=== PATIENT | male | born 1955 | race Caucasian/White ===

== ENCOUNTER 2023-12-28 16:49 | Inpatient (IN) | payer MEDICARE ==
[~2023-12-28 16:49] MED LIST: Iopamidol-370 76% 500 ML MDV (1 ML CHARGE) ONE
[2023-12-28 18:33] LABS: #Basophils 0.1 thou/uL (0.0-0.2); #Eosinphils 0.4 thou/uL (0.0-0.7); #Monocytes 1.3 thou/uL (0.11-0.59); #Neutrophils 10.8 thou/uL (1.40-6.50); %Basophils 0.4 % (0.0-1.0); %Eosinophils 2.7 % (0.0-10.0); %Lymphocytes 10.9 % (21.0-51.0); %Monocytes 8.8 % (0.0-10.0); %Neutrophils 76.1 % (42.0-75.0); Hematocrit 40.3 % (42.0-52.0); Mean Corpuscular HGB CONC 32.3 g/dL (32.0-36.0); Mean Corpuscular Hemoglobin 29.1 pg (27.0-31.0); Mean Corpuscular Volume 90.4 fl (78.0-98.0); Mean Platelet Volume 8.4 fL (7.4-10.4); Platelet Count 448 10x3/uL (130-400); RBC Distribution Width 14.7 % (11.5-14.5); Red Blood Cell (RBC) Count 4.46 mill/uL (4.70-6.10); White Blood Cell (WBC) Count 14.3 10x3/uL (4.8-10.8)
[2023-12-28 19:01] LABS: ALT (SGPT) 24 U/L (8-55); AST (SGOT) 35 U/L (5-34); Albumin 2.9 g/dL (3.4-4.8); Alkaline Phosphatase 43 U/L (40-110); Anion Gap 12 mmol/L (10-20); BUN (Urea Nitrogen) 13 mg/dL (8.4-25.7); Bilirubin, Total 0.3 mg/dL (0.2-1.2); Calc. Creatinine Clearance 0 mL/min (70-130); Calcium 8.2 mg/dL (7.8-10.44); Carbon Dioxide 16 mmol/L (23-31); Chloride 110 mmol/L (98-107); Estimated GFR 102; Globulin 3.2 g/dL (2.4-3.5); Glucose 84 mg/dL (80-115); Potassium 4.5 mmol/L (3.5-5.1); Protein, Total 6.1 g/dL (5.8-8.1); Sodium 133 mmol/L (136-145)
[2023-12-28 19:04] LABS: Troponin I 0.043 ng/mL (< 0.028)
[2023-12-28] MEDS ORDERED: cefTRIAXone (ROCEPHIN) 1 GM VIAL ONE (19:58)
[2023-12-28] MEDS ORDERED: Sodium Chloride 0.9% 100 ML ONE (19:58)
[2023-12-28] MEDS ORDERED: Azithromycin 500 MG VIAL ONE (20:48)
[2023-12-28] MEDS ORDERED: Ipratropium/Albuterol 3 ML NEB NEB PRN (21:36)
[2023-12-28] MEDS ORDERED: Ondansetron PF 4 MG/2 ML Vial IVP PRN (21:37)
[2023-12-28] MEDS ORDERED: Calcium Carbonate 500 MG ChewTAB PO PRN (21:37)
[2023-12-28] MEDS ORDERED: Ondansetron ODT 4 MG TAB PO PRN (21:37)
[2023-12-29 00:57] VITALS: BMI 25.4
[2023-12-29] MEDS: Piperacillin/Tazobactam 3.375 GM in Sodium Chloride 0.9% 100 ML IVPB SCH ×2 (04:22→10:08)
[2023-12-29 06:31] LABS: #Basophils 0.1 thou/uL (0.0-0.2); #Eosinphils 0.7 thou/uL (0.0-0.7); #Monocytes 1.5 thou/uL (0.11-0.59); #Neutrophils 12.3 thou/uL (1.40-6.50); %Basophils 0.4 % (0.0-1.0); %Eosinophils 4.2 % (0.0-10.0); %Lymphocytes 11.1 % (21.0-51.0); %Monocytes 9.2 % (0.0-10.0); %Neutrophils 74.2 % (42.0-75.0); Hematocrit 38.3 % (42.0-52.0); Hemoglobin 12.2 g/dL (14.0-18.0); Mean Corpuscular HGB CONC 31.9 g/dL (32.0-36.0); Mean Corpuscular Hemoglobin 28.8 pg (27.0-31.0); Mean Corpuscular Volume 90.5 fl (78.0-98.0); Mean Platelet Volume 8.5 fL (7.4-10.4); Platelet Count 479 10x3/uL (130-400); RBC Distribution Width 14.8 % (11.5-14.5); Red Blood Cell (RBC) Count 4.23 mill/uL (4.70-6.10); White Blood Cell (WBC) Count 16.6 10x3/uL (4.8-10.8)
[2023-12-29 06:41] LABS: Anion Gap 13 mmol/L (10-20); BUN (Urea Nitrogen) 12 mg/dL (8.4-25.7); Calc. Creatinine Clearance 103 mL/min (70-130); Calcium 8.3 mg/dL (7.8-10.44); Carbon Dioxide 19 mmol/L (23-31); Chloride 108 mmol/L (98-107); Estimated GFR 98; Glucose 85 mg/dL (80-115); Potassium 4.2 mmol/L (3.5-5.1); Sodium 136 mmol/L (136-145)
[2023-12-29] MEDS: Enoxaparin 40 MG (0.4 mL) SYRINGE SC SCH (09:56)
[2023-12-29] MEDS: Atorvastatin Calcium 20 MG TAB PO SCH (10:03)
[2023-12-29] MEDS: Saccharomyces boulardii 250 MG CAP PO SCH (10:03)
[2023-12-29] MEDS: Lisinopril 20 MG TAB PO SCH (10:04)
[2023-12-29] MEDS: Cholecalciferol 1,000 UNITS (25 MCG) TAB PO SCH (10:04)
[2023-12-29] MEDS: Docusate 100 MG CAP PO SCH (10:04)
[2023-12-29] MEDS: Furosemide 20 MG TAB PO SCH (10:05)
[2023-12-29] MEDS: Famotidine 20 MG TAB PO SCH (10:05)
[2023-12-29] MEDS: Metoprolol Tartrate 25 MG TAB PO SCH (10:06)
[2023-12-29] MEDS: Multivit, Therapeutic 1 TAB PO SCH (10:07)
[2023-12-29] MEDS: Ferrous Sulfate 325 MG TAB PO SCH (10:07)
[2023-12-29] MEDS: Famotidine/PF 20 mg/2ml Vial SLOW IVP SCH (10:13)
[2023-12-29] MEDS ORDERED: Barium Sulfate 96% 176 GM BOT (xray ONLY) PO ONE (13:38)
[2023-12-30] MEDS ORDERED: Electrolyte Replacement Protocol 1 EACH FS SCH (02:45)
[2023-12-30 05:20] LABS: #Basophils 0.1 thou/uL (0.0-0.2); #Eosinphils 0.5 thou/uL (0.0-0.7); #Monocytes 1.7 thou/uL (0.11-0.59); #Neutrophils 10.1 thou/uL (1.40-6.50); %Basophils 0.5 % (0.0-1.0); %Eosinophils 3.5 % (0.0-10.0); %Lymphocytes 14.2 % (21.0-51.0); %Monocytes 11.3 % (0.0-10.0); %Neutrophils 69.3 % (42.0-75.0); Hematocrit 35.7 % (42.0-52.0); Hemoglobin 11.7 g/dL (14.0-18.0); Mean Corpuscular HGB CONC 32.8 g/dL (32.0-36.0); Mean Corpuscular Hemoglobin 29.1 pg (27.0-31.0); Mean Corpuscular Volume 88.8 fl (78.0-98.0); Mean Platelet Volume 8.6 fL (7.4-10.4); Platelet Count 455 10x3/uL (130-400); Red Blood Cell (RBC) Count 4.02 mill/uL (4.70-6.10); White Blood Cell (WBC) Count 14.6 10x3/uL (4.8-10.8)
[2023-12-30 05:49] LABS: Anion Gap 10 mmol/L (10-20); BUN (Urea Nitrogen) 13 mg/dL (8.4-25.7); Calc. Creatinine Clearance 92 mL/min (70-130); Calcium 8.3 mg/dL (7.8-10.44); Carbon Dioxide 20 mmol/L (23-31); Chloride 108 mmol/L (98-107); Estimated GFR 95; Glucose 85 mg/dL (80-115); Magnesium 1.8 mg/dL (1.6-2.6); Potassium 4.4 mmol/L (3.5-5.1); Sodium 134 mmol/L (136-145)
[2023-12-30] MEDS: Magnesium 2 GM/50 ML(in water) 2 GM in Premix 1 BAG IVPB SCH ×2 (13:50→14:56)
[2023-12-31 04:35] LABS: #Basophils 0.1 thou/uL (0.0-0.2); #Eosinphils 0.6 thou/uL (0.0-0.7); #Monocytes 1.8 thou/uL (0.11-0.59); #Neutrophils 9.7 thou/uL (1.40-6.50); %Basophils 0.4 % (0.0-1.0); %Lymphocytes 12.7 % (21.0-51.0); %Neutrophils 68.8 % (42.0-75.0); Hematocrit 36.9 % (42.0-52.0); Hemoglobin 11.8 g/dL (14.0-18.0); Mean Corpuscular Hemoglobin 28.6 pg (27.0-31.0); Mean Corpuscular Volume 89.6 fl (78.0-98.0); Mean Platelet Volume 8.3 fL (7.4-10.4); Platelet Count 426 10x3/uL (130-400); RBC Distribution Width 15.1 % (11.5-14.5); Red Blood Cell (RBC) Count 4.12 mill/uL (4.70-6.10)
[2023-12-31 05:00] LABS: Anion Gap 10 mmol/L (10-20); BUN (Urea Nitrogen) 12 mg/dL (8.4-25.7); Calc. Creatinine Clearance 103 mL/min (70-130); Carbon Dioxide 20 mmol/L (23-31); Chloride 107 mmol/L (98-107); Estimated GFR 98; Glucose 80 mg/dL (80-115); Potassium 3.8 mmol/L (3.5-5.1); Sodium 133 mmol/L (136-145)
[2023-12-31] MEDS: Lisinopril 5 MG TAB PO SCH (09:18)
[2023-12-31] MEDS: Acetaminophen 325 MG TAB PO PRN (11:53)
[2024-01-01 05:29] LABS: #Eosinphils 0.5 thou/uL (0.0-0.7); #Monocytes 1.4 thou/uL (0.11-0.59); #Neutrophils 8.6 thou/uL (1.40-6.50); %Basophils 0.3 % (0.0-1.0); %Lymphocytes 14.5 % (21.0-51.0); %Monocytes 11.2 % (0.0-10.0); %Neutrophils 69.4 % (42.0-75.0); Hematocrit 33.9 % (42.0-52.0); Hemoglobin 11.2 g/dL (14.0-18.0); Mean Corpuscular Hemoglobin 29.5 pg (27.0-31.0); Mean Corpuscular Volume 89.2 fl (78.0-98.0); Mean Platelet Volume 8.5 fL (7.4-10.4); Platelet Count 434 10x3/uL (130-400); RBC Distribution Width 15.2 % (11.5-14.5); White Blood Cell (WBC) Count 12.4 10x3/uL (4.8-10.8)
[2024-01-01 05:57] LABS: Anion Gap 12 mmol/L (10-20); BUN (Urea Nitrogen) 14 mg/dL (8.4-25.7); CRP (Inflammatory) 2.61 mg/dL (= or < 0.5); Calc. Creatinine Clearance 106 mL/min (70-130); Calcium 8.2 mg/dL (7.8-10.44); Carbon Dioxide 21 mmol/L (23-31); Chloride 106 mmol/L (98-107); Estimated GFR 99; Glucose 85 mg/dL (80-115); Magnesium 1.9 mg/dL (1.6-2.6); Phosphorus 3.4 mg/dL (2.3-4.7); Potassium 3.9 mmol/L (3.5-5.1); Sodium 135 mmol/L (136-145)
[2024-01-01] MEDS: Magnesium 2 GM/50 ML(in water) 2 GM in Premix 1 BAG IVPB SCH (08:36)
[2024-01-01] MEDS: Metoprolol Tartrate 25 MG TAB PO SCH ×2 (11:18→13:11)
[2024-01-01] MEDS: Potassium Chloride 20 MEQ TAB PO SCH (16:15)
[2024-01-02 05:11] LABS: #Basophils 0.1 thou/uL (0.0-0.2); #Eosinphils 0.6 thou/uL (0.0-0.7); #Monocytes 1.5 thou/uL (0.11-0.59); #Neutrophils 9.1 thou/uL (1.40-6.50); %Basophils 0.6 % (0.0-1.0); %Eosinophils 4.5 % (0.0-10.0); %Lymphocytes 13.4 % (21.0-51.0); %Monocytes 11.5 % (0.0-10.0); %Neutrophils 69.3 % (42.0-75.0); Hematocrit 34.1 % (42.0-52.0); Hemoglobin 11.1 g/dL (14.0-18.0); Mean Corpuscular HGB CONC 32.6 g/dL (32.0-36.0); Mean Corpuscular Hemoglobin 28.8 pg (27.0-31.0); Mean Corpuscular Volume 88.6 fl (78.0-98.0); Mean Platelet Volume 8.4 fL (7.4-10.4); Platelet Count 423 10x3/uL (130-400); RBC Distribution Width 15.1 % (11.5-14.5); Red Blood Cell (RBC) Count 3.85 mill/uL (4.70-6.10); White Blood Cell (WBC) Count 13.2 10x3/uL (4.8-10.8)
[2024-01-02 05:37] LABS: Anion Gap 9 mmol/L (10-20); BUN (Urea Nitrogen) 10 mg/dL (8.4-25.7); Calc. Creatinine Clearance 106 mL/min (70-130); Carbon Dioxide 21 mmol/L (23-31); Chloride 104 mmol/L (98-107); Estimated GFR 99; Glucose 85 mg/dL (80-115); Magnesium 1.8 mg/dL (1.6-2.6); Potassium 4.1 mmol/L (3.5-5.1); Sodium 130 mmol/L (136-145)
[2024-01-02] MEDS: Magnesium 2 GM/50 ML(in water) 2 GM in Premix 1 BAG IVPB SCH ×2 (08:00→09:11)
[2024-01-02] MEDS ORDERED: DC Electrolyte Protocol FS SCH (08:14)
[2024-01-02] MEDS: Metoprolol Tartrate 25 MG TAB PO SCH (09:07)
[2024-01-02] MEDS ORDERED: GUAIFENESIN SF SOLN 200 MG/10 ML UDCUP PO PRN (13:40)
[2024-01-02] MEDS: guaiFENesin ER 600 MG TAB PO SCH (20:49)
[2024-01-03 05:24] LABS: #Basophils 0.1 thou/uL (0.0-0.2); #Eosinphils 0.6 thou/uL (0.0-0.7); #Monocytes 1.5 thou/uL (0.11-0.59); #Neutrophils 10.3 thou/uL (1.40-6.50); %Basophils 0.5 % (0.0-1.0); %Eosinophils 4.1 % (0.0-10.0); %Monocytes 10.7 % (0.0-10.0); %Neutrophils 73.2 % (42.0-75.0); Hematocrit 34.6 % (42.0-52.0); Hemoglobin 11.4 g/dL (14.0-18.0); Mean Corpuscular HGB CONC 32.9 g/dL (32.0-36.0); Mean Corpuscular Hemoglobin 29.5 pg (27.0-31.0); Mean Corpuscular Volume 89.6 fl (78.0-98.0); Mean Platelet Volume 8.5 fL (7.4-10.4); Platelet Count 370 10x3/uL (130-400); RBC Distribution Width 15.4 % (11.5-14.5); Red Blood Cell (RBC) Count 3.86 mill/uL (4.70-6.10); White Blood Cell (WBC) Count 14.1 10x3/uL (4.8-10.8)
[2024-01-03 05:46] LABS: Anion Gap 11 mmol/L (10-20); BUN (Urea Nitrogen) 10 mg/dL (8.4-25.7); Calc. Creatinine Clearance 107 mL/min (70-130); Calcium 7.9 mg/dL (7.8-10.44); Carbon Dioxide 21 mmol/L (23-31); Chloride 104 mmol/L (98-107); Estimated GFR 100; Glucose 83 mg/dL (80-115); Magnesium 1.9 mg/dL (1.6-2.6); Sodium 132 mmol/L (136-145)
[2024-01-03 12:16] VITALS: TEMP 98.1
[2024-01-03] MEDS ORDERED: dilTIAZem 30 MG TAB PO PRN (12:50)
[2024-01-03 13:28] VITALS: BP 126/58
== END 2024-01-03 15:10 | disposition swing bed (61) | DRG 871 ==
LOC: ERS 16:49 → 2NO 20:33
PROVIDERS: ADMIT Student in an Organized Health Care Education/Training Program; ATTEND Internal Medicine
DX: A41.89 Other specified sepsis (principal); I21.A1 Myocardial infarction type 2; J96.01 Acute respiratory failure with hypoxia; U07.1 COVID-19; J12.82 Pneumonia due to coronavirus disease 2019; J15.69 Pneumonia due to other Gram-negative bacteria; I47.20 Ventricular tachycardia, unspecified; E87.20 Acidosis, unspecified; F03.90 Unspecified dementia, unspecified severity, without behavioral disturbance, psychotic disturbance, mood disturbance, and anxiety; R65.20 Severe sepsis without septic shock; A41.50 Gram-negative sepsis, unspecified; E78.5 Hyperlipidemia, unspecified; I10 Essential (primary) hypertension; F32.A Depression, unspecified; D50.9 Iron deficiency anemia, unspecified; E83.42 Hypomagnesemia; E87.6 Hypokalemia; Z86.73 Personal history of transient ischemic attack (TIA), and cerebral infarction without residual deficits; Z87.891 Personal history of nicotine dependence
CPT/HCPCS: 36415; 71045; 71275; 74230; 80048; 80053; 83735; 83880; 84100; 84145; 84484; 85025; 86140; 87040; 87081; 87633; 93005; 96374; 96375; J0456; J0696; J1650; J2543; J3475; J3490; Q9967; S0028

== ENCOUNTER 2024-01-15 08:28 | Inpatient (IN) | payer MEDICARE, MEDICAID ==
[2024-01-15 08:49] LABS: #Basophils 0.1 thou/uL (0.0-0.2); #Eosinphils 0.2 thou/uL (0.0-0.7); #Monocytes 0.9 thou/uL (0.11-0.59); #Neutrophils 14.3 thou/uL (1.40-6.50); %Basophils 0.3 % (0.0-1.0); %Eosinophils 0.9 % (0.0-10.0); %Lymphocytes 14.8 % (21.0-51.0); %Monocytes 5.1 % (0.0-10.0); %Neutrophils 78.2 % (42.0-75.0); Hematocrit 36.8 % (42.0-52.0); Hemoglobin 11.9 g/dL (14.0-18.0); Mean Corpuscular HGB CONC 32.3 g/dL (32.0-36.0); Mean Corpuscular Hemoglobin 29.3 pg (27.0-31.0); Mean Corpuscular Volume 90.6 fl (78.0-98.0); Mean Platelet Volume 8.4 fL (7.4-10.4); Platelet Count 478 10x3/uL (130-400); RBC Distribution Width 15.9 % (11.5-14.5); Red Blood Cell (RBC) Count 4.06 mill/uL (4.70-6.10); White Blood Cell (WBC) Count 18.3 10x3/uL (4.8-10.8)
[2024-01-15 09:07] LABS: ALT (SGPT) 41 U/L (8-55); AST (SGOT) 68 U/L (5-34); Albumin 2.7 g/dL (3.4-4.8); Alkaline Phosphatase 58 U/L (40-110); Anion Gap 13 mmol/L (10-20); BUN (Urea Nitrogen) 19 mg/dL (8.4-25.7); Bilirubin, Total 0.5 mg/dL (0.2-1.2); Calc. Creatinine Clearance 0 mL/min (70-130); Carbon Dioxide 24 mmol/L (23-31); Chloride 97 mmol/L (98-107); Estimated GFR 97; Globulin 3.5 g/dL (2.4-3.5); Glucose 96 mg/dL (80-115); Potassium 4.9 mmol/L (3.5-5.1); Protein, Total 6.2 g/dL (5.8-8.1); Sodium 129 mmol/L (136-145)
[2024-01-15 09:10] LABS: INR-International Normal Ratio 1.1; Prothrombin Time 14.2 sec (12.0-14.7); Troponin I 0.058 ng/mL (< 0.028)
[2024-01-15 09:11] LABS: PTT 40.5 sec (22.9-36.1)
[2024-01-15 09:21] LABS: Actual Bicarbonate (HCO3v) 26.3 mEq/L (22-28); Analyzer IN Cardio ER; Calcium, Ionized (venous) 1.04 mmol/L (1.16-1.32); Chloride (VBG) 96 mmol/L (98-106); Hematocrit-VBG 38 % (42.0-52.0); Hemoglobin (Hb) 12.8 g/dL (12.6-17.4); Sodium 129 mmol/L (133-146); pH (venous) 7.434 (7.32-7.43)
[2024-01-15] MEDS ORDERED: Cefepime 2 GM VIAL ONE (09:27)
[2024-01-15] MEDS ORDERED: Vancomycin 1 GM/200 ML (FROZEN) BAG ONE (09:28)
[2024-01-15] MEDS ORDERED: Sodium Chloride 0.9% 100 ML ONE (09:28)
[2024-01-15] MEDS ORDERED: Senokot S 8.6-50 MG TAB PO PRN (09:58)
[2024-01-15] MEDS ORDERED: Acetaminophen 325 MG TAB PO PRN (09:58)
[2024-01-15] MEDS ORDERED: Ondansetron PF 4 MG/2 ML Vial IVP PRN (09:58)
[2024-01-15] MEDS ORDERED: Bisacodyl 5 MG TAB PO PRN (09:58)
[2024-01-15] MEDS ORDERED: Bisacodyl 10 MG SUPP PR PRN (09:58)
[2024-01-15 10:00] LABS: Influenza A by NAA Not Detected (NotDetected); Influenza B by NAA Not Detected (NotDetected); SARS-CoV-2 NAA Rapid Test Not Detected (NotDetected)
[2024-01-15] MEDS ORDERED: Ipratropium/Albuterol 3 ML NEB ONE (10:52)
[2024-01-15 11:37] LABS: Hemoglobin A1c 5.2 % (4.0-6.0)
[2024-01-15 11:54] LABS: Troponin I 0.045 ng/mL (< 0.028)
[2024-01-15] MEDS: Azithromycin 500 MG in Sodium Chloride 0.9% 250 ML 250 ML IVPB SCH (14:06)
[2024-01-15] MEDS: metroNIDAZOLE 250 MG TAB PO SCH (17:10)
[2024-01-15] MEDS: Cefepime 2 GM in Sodium Chloride 0.9% 100 ML IVPB SCH (17:10)
[2024-01-15] MEDS ORDERED: Vancomycin 1 GM in Premix 1 BAG IVPB SCH (21:00)
[2024-01-15] MEDS: Vancomycin (BATCH) 1.25 GM in Premix 1 BAG IVPB SCH (21:35)
[2024-01-15 23:21] LABS: Legionella Urinary Ag Negative (Negative); Strep pneumo Urine Ag NEGATIVE (NEGATIVE)
[2024-01-15 23:32] LABS: Magnesium 2.3 mg/dL (1.6-2.6)
[2024-01-16 04:43] LABS: #Monocytes 1.5 thou/uL (0.11-0.59); #Neutrophils 12.8 thou/uL (1.40-6.50); %Basophils 0.2 % (0.0-1.0); %Monocytes 9.3 % (0.0-10.0); %Neutrophils 79.2 % (42.0-75.0); Hematocrit 31.5 % (42.0-52.0); Hemoglobin 10.1 g/dL (14.0-18.0); Mean Corpuscular HGB CONC 32.1 g/dL (32.0-36.0); Mean Corpuscular Hemoglobin 28.9 pg (27.0-31.0); Mean Corpuscular Volume 90.3 fl (78.0-98.0); Mean Platelet Volume 8.5 fL (7.4-10.4); Platelet Count 440 10x3/uL (130-400); RBC Distribution Width 15.8 % (11.5-14.5); Red Blood Cell (RBC) Count 3.49 mill/uL (4.70-6.10); White Blood Cell (WBC) Count 16.2 10x3/uL (4.8-10.8)
[2024-01-16 05:46] LABS: ALT (SGPT) 36 U/L (8-55); AST (SGOT) 45 U/L (5-34); Albumin 2.4 g/dL (3.4-4.8); Alkaline Phosphatase 77 U/L (40-110); Anion Gap 13 mmol/L (10-20); BUN (Urea Nitrogen) 20 mg/dL (8.4-25.7); Bilirubin, Direct 0.1 mg/dL (0.1-0.3); Bilirubin, Total 0.2 mg/dL (0.2-1.2); Calc. Creatinine Clearance 113 mL/min (70-130); Calcium 7.6 mg/dL (7.8-10.44); Carbon Dioxide 22 mmol/L (23-31); Chloride 104 mmol/L (98-107); Estimated GFR 102; Glucose 113 mg/dL (80-115); Magnesium 2.3 mg/dL (1.6-2.6); Potassium 3.9 mmol/L (3.5-5.1); Protein, Total 5.3 g/dL (5.8-8.1); Sodium 135 mmol/L (136-145)
[2024-01-16] MEDS: Saccharomyces boulardii 250 MG CAP PO SCH (08:48)
[2024-01-16] MEDS: metroNIDAZOLE 500 MG TAB PO SCH (08:48)
[2024-01-16] MEDS: Sodium Chloride 0.9% 1,000 ML IV SCH (09:43)
[2024-01-16] MEDS ORDERED: Piperacillin/Tazobactam 3.375 GM in Sodium Chloride 0.9% 100 ML IVPB SCH (12:45)
[2024-01-16] MEDS: Piperacillin/Tazobactam 3.375 GM in Sodium Chloride 0.9% 100 ML IVPB SCH ×2 (13:51→17:26)
[2024-01-16] MEDS: Albuterol 2.5 MG (3 mL) NEB NEB PRN (14:13)
[2024-01-16 15:09] LABS: Actual Bicarbonate (HCO3a) 24.3 mEq/L (22-28); CO2 Tension 34.1 mmHg (35.0-45.0); Carboxyhemoglobin (COHb) 0.4 gm% (0.0-3.0); Hematocrit-ABG 34 % (42.0-52.0); Hemoglobin (Hb) 11.5 g/dL (14.0-18.0); O2 Tension (PaO2), arterial 60.2 mmHg (> 80.0); Potassium - ABG Lab 3.49 mmol/L (3.70-5.30)
[2024-01-16 15:12] LABS: ALV-art Gradient 210.895 mmHg (0-20); Puncture Site LRA
[2024-01-16] MEDS: methylPREDNISolone Sod Succ 40 MG VIAL IVP SCH (19:09)
[2024-01-16] MEDS: Enoxaparin 40 MG (0.4 mL) SYRINGE SC SCH (20:50)
[2024-01-17] MEDS: Metoprolol Tartrate 25 MG TAB PO SCH ×2 (01:01→08:26)
[2024-01-17 05:42] LABS: #Monocytes 1.2 thou/uL (0.11-0.59); #Neutrophils 10.5 thou/uL (1.40-6.50); %Basophils 0.2 % (0.0-1.0); %Eosinophils 0.1 % (0.0-10.0); %Lymphocytes 6.4 % (21.0-51.0); %Monocytes 9.5 % (0.0-10.0); %Neutrophils 82.8 % (42.0-75.0); Hematocrit 32.9 % (42.0-52.0); Hemoglobin 10.6 g/dL (14.0-18.0); Mean Corpuscular HGB CONC 32.2 g/dL (32.0-36.0); Mean Corpuscular Hemoglobin 29.4 pg (27.0-31.0); Mean Corpuscular Volume 91.1 fl (78.0-98.0); Mean Platelet Volume 8.5 fL (7.4-10.4); Platelet Count 495 10x3/uL (130-400); RBC Distribution Width 15.9 % (11.5-14.5); Red Blood Cell (RBC) Count 3.61 mill/uL (4.70-6.10); White Blood Cell (WBC) Count 12.7 10x3/uL (4.8-10.8)
[2024-01-17 06:38] LABS: Anion Gap 10 mmol/L (10-20); BUN (Urea Nitrogen) 16 mg/dL (8.4-25.7); Calc. Creatinine Clearance 110 mL/min (70-130); Calcium 7.1 mg/dL (7.8-10.44); Carbon Dioxide 21 mmol/L (23-31); Chloride 108 mmol/L (98-107); Estimated GFR 101; Glucose 90 mg/dL (80-115); Magnesium 2.4 mg/dL (1.6-2.6); Potassium 4.3 mmol/L (3.5-5.1); Sodium 135 mmol/L (136-145)
[2024-01-17] MEDS: methylPREDNISolone Sod Succ 40 MG VIAL IVP SCH (08:26)
[2024-01-17] MEDS: Atorvastatin Calcium 40 MG TAB PO SCH (21:56)
[2024-01-17] MEDS: Famotidine/PF 20 mg/2ml Vial SLOW IVP SCH (21:57)
[2024-01-18 05:08] LABS: #Basophils 0.1 thou/uL (0.0-0.2); #Eosinphils 0.1 thou/uL (0.0-0.7); #Monocytes 0.9 thou/uL (0.11-0.59); #Neutrophils 13.1 thou/uL (1.40-6.50); %Basophils 0.4 % (0.0-1.0); %Eosinophils 0.3 % (0.0-10.0); %Lymphocytes 6.9 % (21.0-51.0); %Monocytes 5.8 % (0.0-10.0); %Neutrophils 85.5 % (42.0-75.0); Mean Corpuscular HGB CONC 31.6 g/dL (32.0-36.0); Mean Corpuscular Hemoglobin 28.7 pg (27.0-31.0); Mean Corpuscular Volume 90.9 fl (78.0-98.0); Mean Platelet Volume 8.3 fL (7.4-10.4); Platelet Count 509 10x3/uL (130-400); RBC Distribution Width 16.4 % (11.5-14.5); Red Blood Cell (RBC) Count 4.18 mill/uL (4.70-6.10); White Blood Cell (WBC) Count 15.3 10x3/uL (4.8-10.8)
[2024-01-18 05:31] LABS: Anion Gap 14 mmol/L (10-20); BUN (Urea Nitrogen) 14 mg/dL (8.4-25.7); Calc. Creatinine Clearance 125 mL/min (70-130); Carbon Dioxide 17 mmol/L (23-31); Chloride 110 mmol/L (98-107); Estimated GFR 104; Glucose 81 mg/dL (80-115); Magnesium 2.1 mg/dL (1.6-2.6); Potassium 4.1 mmol/L (3.5-5.1); Sodium 137 mmol/L (136-145)
[2024-01-18] MEDS: Aspirin 81 mg Enteric Coated Tablet PO SCH (07:59)
[2024-01-18] MEDS: D5 1/2 NS w/20 mEq KCL 1,000 ML IV SCH (12:49)
[2024-01-18] MEDS ORDERED: D5 1/2 NS w/20 mEq KCL 1,000 ML IV SCH (22:12)
[2024-01-18] MEDS: QUEtiapine 25 MG TAB PO SCH (23:11)
[2024-01-18 23:13] LABS: Mycoplasma pneumoniae IgG AB 219 U/mL (0-99); Mycoplasma pneumoniae IgM AB Less than 770 U/mL (0-769)
[2024-01-19] MEDS: Ipratropium/Albuterol 3 ML NEB NEB PRN (01:00)
[2024-01-19] MEDS: Furosemide 40 MG (4 mL) VIAL ONE (01:16)
[2024-01-19] MEDS: Furosemide 40 MG (4 mL) VIAL SLOW IVP SCH (01:16)
[2024-01-19 06:13] LABS: #Monocytes 1.3 thou/uL (0.11-0.59); #Neutrophils 17.1 thou/uL (1.40-6.50); %Basophils 0.2 % (0.0-1.0); %Lymphocytes 6.2 % (21.0-51.0); %Monocytes 6.4 % (0.0-10.0); %Neutrophils 85.6 % (42.0-75.0); Hematocrit 39.4 % (42.0-52.0); Hemoglobin 12.5 g/dL (14.0-18.0); Mean Corpuscular HGB CONC 31.7 g/dL (32.0-36.0); Mean Corpuscular Hemoglobin 28.9 pg (27.0-31.0); Mean Platelet Volume 8.4 fL (7.4-10.4); Platelet Count 554 10x3/uL (130-400); RBC Distribution Width 16.5 % (11.5-14.5); Red Blood Cell (RBC) Count 4.33 mill/uL (4.70-6.10)
[2024-01-19 06:41] LABS: Anion Gap 15 mmol/L (10-20); BUN (Urea Nitrogen) 16 mg/dL (8.4-25.7); Calc. Creatinine Clearance 99 mL/min (70-130); Calcium 7.7 mg/dL (7.8-10.44); Carbon Dioxide 18 mmol/L (23-31); Chloride 106 mmol/L (98-107); Estimated GFR 97; Glucose 119 mg/dL (80-115); Magnesium 1.9 mg/dL (1.6-2.6); Sodium 135 mmol/L (136-145)
[2024-01-19] MEDS: Midodrine HCl 5 MG TAB PO SCH (16:23)
[2024-01-20] MEDS: Amiodarone 450 MG in Dextrose 5% in Water 250 ML IVPB SCH ×2 (03:49→17:37)
[2024-01-20 05:22] LABS: #Basophils 0.1 thou/uL (0.0-0.2); #Monocytes 2.1 thou/uL (0.11-0.59); #Neutrophils 14.9 thou/uL (1.40-6.50); %Basophils 0.3 % (0.0-1.0); %Eosinophils 0.1 % (0.0-10.0); %Monocytes 10.8 % (0.0-10.0); %Neutrophils 75.4 % (42.0-75.0); Hematocrit 36.6 % (42.0-52.0); Hemoglobin 11.4 g/dL (14.0-18.0); Mean Corpuscular HGB CONC 31.1 g/dL (32.0-36.0); Mean Corpuscular Hemoglobin 28.4 pg (27.0-31.0); Mean Platelet Volume 8.4 fL (7.4-10.4); Platelet Count 546 10x3/uL (130-400); RBC Distribution Width 17.1 % (11.5-14.5); Red Blood Cell (RBC) Count 4.02 mill/uL (4.70-6.10); White Blood Cell (WBC) Count 19.7 10x3/uL (4.8-10.8)
[2024-01-20 05:34] LABS: Anion Gap 15 mmol/L (10-20); BUN (Urea Nitrogen) 15 mg/dL (8.4-25.7); Calc. Creatinine Clearance 108 mL/min (70-130); Calcium 7.5 mg/dL (7.8-10.44); Carbon Dioxide 19 mmol/L (23-31); Chloride 109 mmol/L (98-107); Estimated GFR 100; Glucose 85 mg/dL (80-115); Potassium 3.7 mmol/L (3.5-5.1); Sodium 139 mmol/L (136-145)
[2024-01-20] MEDS ORDERED: Acetaminophen 650 MG Suppository PR PRN (08:16)
[2024-01-20] MEDS ORDERED: Aspirin 300 MG Suppository PR SCH (09:00)
[2024-01-20] MEDS: Furosemide 40 MG (4 mL) VIAL SLOW IVP SCH ×3 (10:58→17:33)
[2024-01-20] MEDS: methylPREDNISolone Sod Succ 40 MG VIAL IVP SCH (10:58)
[2024-01-20] MEDS ORDERED: Acetaminophen 325 MG TAB PO PRN (14:16)
[2024-01-20] MEDS: Albumin 25% 25 GM (100 mL) BOT IVPB SCH (14:52)
[2024-01-20] MEDS: Metoprolol Tartrate 25 MG TAB PO SCH ×2 (14:53→20:51)
[2024-01-21 06:02] LABS: #Monocytes 1.7 thou/uL (0.11-0.59); %Basophils 0.2 % (0.0-1.0); %Eosinophils 0.2 % (0.0-10.0); %Lymphocytes 10.7 % (21.0-51.0); %Neutrophils 78.6 % (42.0-75.0); Hematocrit 37.9 % (42.0-52.0); Hemoglobin 12.2 g/dL (14.0-18.0); Mean Corpuscular HGB CONC 32.2 g/dL (32.0-36.0); Mean Corpuscular Hemoglobin 28.8 pg (27.0-31.0); Mean Corpuscular Volume 89.6 fl (78.0-98.0); Mean Platelet Volume 8.6 fL (7.4-10.4); Platelet Count 577 10x3/uL (130-400); RBC Distribution Width 17.3 % (11.5-14.5); Red Blood Cell (RBC) Count 4.23 mill/uL (4.70-6.10)
[2024-01-21 06:23] LABS: Phosphorus 1.9 mg/dL (2.3-4.7)
[2024-01-21 06:28] LABS: ALT (SGPT) 36 U/L (8-55); AST (SGOT) 39 U/L (5-34); Alkaline Phosphatase 48 U/L (40-110); Anion Gap 16 mmol/L (10-20); BUN (Urea Nitrogen) 18 mg/dL (8.4-25.7); Bilirubin, Direct 0.3 mg/dL (0.1-0.3); Bilirubin, Total 0.5 mg/dL (0.2-1.2); Calc. Creatinine Clearance 97 mL/min (70-130); Calcium 7.7 mg/dL (7.8-10.44); Carbon Dioxide 22 mmol/L (23-31); Chloride 105 mmol/L (98-107); Estimated GFR 99; Glucose 122 mg/dL (80-115); Potassium 3.1 mmol/L (3.5-5.1); Protein, Total 5.7 g/dL (5.8-8.1); Sodium 140 mmol/L (136-145)
[2024-01-21] MEDS: Amiodarone 200 MG TAB PO SCH (11:09)
[2024-01-21] MEDS: Aspirin 81 mg Enteric Coated Tablet PO SCH (11:10)
[2024-01-21] MEDS: Potassium Chloride 20 MEQ TAB PO SCH (11:10)
[2024-01-21] MEDS: Famotidine 20 MG TAB PO SCH (22:15)
[2024-01-22 05:50] LABS: #Eosinphils 0.2 thou/uL (0.0-0.7); #Monocytes 1.7 thou/uL (0.11-0.59); #Neutrophils 12.9 thou/uL (1.40-6.50); %Basophils 0.2 % (0.0-1.0); %Neutrophils 74.4 % (42.0-75.0); Hematocrit 37.9 % (42.0-52.0); Hemoglobin 11.9 g/dL (14.0-18.0); Mean Corpuscular HGB CONC 31.4 g/dL (32.0-36.0); Mean Corpuscular Hemoglobin 28.7 pg (27.0-31.0); Mean Corpuscular Volume 91.3 fl (78.0-98.0); Mean Platelet Volume 8.8 fL (7.4-10.4); Platelet Count 507 10x3/uL (130-400); RBC Distribution Width 17.7 % (11.5-14.5); Red Blood Cell (RBC) Count 4.15 mill/uL (4.70-6.10); White Blood Cell (WBC) Count 17.3 10x3/uL (4.8-10.8)
[2024-01-22 06:21] LABS: Phosphorus 2.8 mg/dL (2.3-4.7)
[2024-01-22 06:22] LABS: Anion Gap 14 mmol/L (10-20); BUN (Urea Nitrogen) 21 mg/dL (8.4-25.7); Calc. Creatinine Clearance 85 mL/min (70-130); Calcium 7.8 mg/dL (7.8-10.44); Carbon Dioxide 26 mmol/L (23-31); Chloride 106 mmol/L (98-107); Estimated GFR 95; Glucose 86 mg/dL (80-115); Magnesium 2.4 mg/dL (1.6-2.6); Potassium 3.4 mmol/L (3.5-5.1); Sodium 143 mmol/L (136-145)
[2024-01-24 06:02] LABS: #Eosinphils 0.1 thou/uL (0.0-0.7); #Monocytes 1.6 thou/uL (0.11-0.59); #Neutrophils 14.9 thou/uL (1.40-6.50); %Basophils 0.1 % (0.0-1.0); %Eosinophils 0.3 % (0.0-10.0); %Lymphocytes 13.1 % (21.0-51.0); %Monocytes 8.2 % (0.0-10.0); %Neutrophils 77.5 % (42.0-75.0); Hematocrit 40.3 % (42.0-52.0); Hemoglobin 12.5 g/dL (14.0-18.0); Mean Corpuscular Hemoglobin 28.9 pg (27.0-31.0); Mean Corpuscular Volume 93.3 fl (78.0-98.0); Mean Platelet Volume 8.9 fL (7.4-10.4); Platelet Count 545 10x3/uL (130-400); RBC Distribution Width 17.7 % (11.5-14.5); Red Blood Cell (RBC) Count 4.32 mill/uL (4.70-6.10); White Blood Cell (WBC) Count 19.3 10x3/uL (4.8-10.8)
[2024-01-24 06:24] LABS: Anion Gap 16 mmol/L (10-20); BUN (Urea Nitrogen) 25 mg/dL (8.4-25.7); Calc. Creatinine Clearance 97 mL/min (70-130); Calcium 8.3 mg/dL (7.8-10.44); Carbon Dioxide 26 mmol/L (23-31); Chloride 104 mmol/L (98-107); Estimated GFR 99; Glucose 87 mg/dL (80-115); Potassium 3.4 mmol/L (3.5-5.1); Sodium 143 mmol/L (136-145)
[2024-01-24] MEDS ORDERED: Apixaban 5 MG TAB PO SCH (21:00)
[2024-01-24] MEDS: Enoxaparin 40 MG (0.4 mL) SYRINGE SC SCH (21:22)
[2024-01-25 04:36] LABS: #Monocytes 1.3 thou/uL (0.11-0.59); #Neutrophils 11.3 thou/uL (1.40-6.50); %Basophils 0.1 % (0.0-1.0); %Eosinophils 0.2 % (0.0-10.0); %Lymphocytes 15.3 % (21.0-51.0); %Monocytes 8.8 % (0.0-10.0); %Neutrophils 74.9 % (42.0-75.0); Hematocrit 35.7 % (42.0-52.0); Hemoglobin 11.2 g/dL (14.0-18.0); Mean Corpuscular HGB CONC 31.4 g/dL (32.0-36.0); Mean Corpuscular Hemoglobin 28.9 pg (27.0-31.0); Mean Platelet Volume 8.9 fL (7.4-10.4); RBC Distribution Width 17.7 % (11.5-14.5); Red Blood Cell (RBC) Count 3.88 mill/uL (4.70-6.10); White Blood Cell (WBC) Count 15.1 10x3/uL (4.8-10.8)
[2024-01-25 04:58] LABS: Anion Gap 14 mmol/L (10-20); BUN (Urea Nitrogen) 26 mg/dL (8.4-25.7); Calc. Creatinine Clearance 103 mL/min (70-130); Carbon Dioxide 29 mmol/L (23-31); Chloride 101 mmol/L (98-107); Estimated GFR 100; Glucose 81 mg/dL (80-115); Potassium 3.2 mmol/L (3.5-5.1); Sodium 141 mmol/L (136-145)
[2024-01-25 06:09] LABS: Platelet Count 440 10x3/uL (130-400)
[2024-01-25] MEDS ORDERED: Potassium Chloride 40 MEQ in Premix 1 BAG IVPB SCH (10:00)
[2024-01-25] MEDS ORDERED: Ketamine In 0.9 % NaCl 50 MG/5 ML SYRINGE ONE (11:23)
[2024-01-25] MEDS ORDERED: PROPOFOL 200 MG/20 ML VIAL ONE (11:40)
[2024-01-25] MEDS ORDERED: ePHEDrine Sulfate 50 MG/10 ML VIAL ONE (11:51)
[2024-01-25] MEDS ORDERED: PROPOFOL 0 ML ONE (11:53)
[2024-01-25] MEDS ORDERED: Promethazine HCl 25 MG/ML VIAL IM PRN (12:19)
[2024-01-25] MEDS ORDERED: Ondansetron HCl/PF 4 MG/2 ML Vial IVP PRN (12:19)
[2024-01-25] MEDS: Potassium Chloride 20 MEQ in Premix 1 BAG IVPB SCH (13:40)
[2024-01-25 14:39] VITALS: BMI 24.3
[2024-01-26] MEDS: Aspirin Chewable 81 MG TAB PO SCH (08:39)
[2024-01-26] MEDS ORDERED: EPINEPHrine 1 MG/ML VIAL ONE (11:01)
[2024-01-26] MEDS ORDERED: Bupivacaine 0.25% HCL 30 ML VIAL ONE (11:01)
[2024-01-26] MEDS ORDERED: SUGAMMADEX SODIUM 200 MG/2 ML VIAL ONE (11:53)
[2024-01-26] MEDS ORDERED: Etomidate 40 MG (20 mL) VIAL ONE (11:53)
[2024-01-26] MEDS ORDERED: Lidocaine 1% PF 5 ML VIAL ONE (11:53)
[2024-01-26] MEDS ORDERED: Sodium Chloride 0.9% 100 ML ONE (11:55)
[2024-01-26] MEDS ORDERED: cefOXitin 2 GM VIAL ONE (11:55)
[2024-01-26] MEDS ORDERED: fentaNYL PF 100 MCG/2 ML SYRINGE ONE (12:02)
[2024-01-26] MEDS ORDERED: Rocuronium Bromide 10 MG/ML (10ML VIAL) ONE (12:02)
[2024-01-26] MEDS ORDERED: Dexamethasone 20 MG/5 ML VIAL ONE (12:02)
[2024-01-26] MEDS ORDERED: Ondansetron PF 4 MG/2 ML Vial ONE (12:02)
[2024-01-27] MEDS: Furosemide 40 MG (4 mL) VIAL SLOW IVP SCH ×2 (08:59→09:00)
[2024-01-27 10:52] LABS: #Monocytes 1.6 thou/uL (0.11-0.59); %Basophils 0.2 % (0.0-1.0); %Eosinophils 0.2 % (0.0-10.0); %Lymphocytes 12.6 % (21.0-51.0); %Monocytes 10.6 % (0.0-10.0); %Neutrophils 75.8 % (42.0-75.0); Hematocrit 34.7 % (42.0-52.0); Hemoglobin 10.8 g/dL (14.0-18.0); Mean Corpuscular HGB CONC 31.1 g/dL (32.0-36.0); Mean Corpuscular Hemoglobin 29.3 pg (27.0-31.0); Mean Corpuscular Volume 94.3 fl (78.0-98.0); Mean Platelet Volume 9.4 fL (7.4-10.4); Platelet Count 431 10x3/uL (130-400); RBC Distribution Width 17.8 % (11.5-14.5); Red Blood Cell (RBC) Count 3.68 mill/uL (4.70-6.10); White Blood Cell (WBC) Count 14.6 10x3/uL (4.8-10.8)
[2024-01-27 11:16] LABS: Anion Gap 15 mmol/L (10-20); BUN (Urea Nitrogen) 21 mg/dL (8.4-25.7); Calc. Creatinine Clearance 93 mL/min (70-130); Calcium 8.3 mg/dL (7.8-10.44); Carbon Dioxide 28 mmol/L (23-31); Chloride 101 mmol/L (98-107); Estimated GFR 98; Glucose 81 mg/dL (80-115); Potassium 4.1 mmol/L (3.5-5.1); Sodium 140 mmol/L (136-145)
[2024-01-27] MEDS: Potassium Chloride 20 MEQ TAB PER TUBE SCH ×2 (13:53→16:33)
[2024-01-27] MEDS ORDERED: Potassium Chloride 20 MEQ TAB PER TUBE SCH (16:00)
[2024-01-28 05:21] LABS: #Eosinphils 0.3 thou/uL (0.0-0.7); #Monocytes 1.2 thou/uL (0.11-0.59); #Neutrophils 9.2 thou/uL (1.40-6.50); %Basophils 0.2 % (0.0-1.0); %Eosinophils 2.6 % (0.0-10.0); %Lymphocytes 11.4 % (21.0-51.0); %Monocytes 9.6 % (0.0-10.0); %Neutrophils 75.6 % (42.0-75.0); Hematocrit 33.4 % (42.0-52.0); Hemoglobin 10.4 g/dL (14.0-18.0); Mean Corpuscular HGB CONC 31.1 g/dL (32.0-36.0); Mean Corpuscular Hemoglobin 29.5 pg (27.0-31.0); Mean Corpuscular Volume 94.9 fl (78.0-98.0); Mean Platelet Volume 9.3 fL (7.4-10.4); Platelet Count 420 10x3/uL (130-400); RBC Distribution Width 17.8 % (11.5-14.5); Red Blood Cell (RBC) Count 3.52 mill/uL (4.70-6.10); White Blood Cell (WBC) Count 12.2 10x3/uL (4.8-10.8)
[2024-01-28 05:44] LABS: Anion Gap 10 mmol/L (10-20); BUN (Urea Nitrogen) 29 mg/dL (8.4-25.7); Calc. Creatinine Clearance 98 mL/min (70-130); Carbon Dioxide 30 mmol/L (23-31); Chloride 102 mmol/L (98-107); Estimated GFR 100; Glucose 129 mg/dL (80-115); Potassium 4.2 mmol/L (3.5-5.1); Sodium 138 mmol/L (136-145)
[2024-01-28 09:13] VITALS: TEMP 97.6
[2024-01-28] MEDS: Apixaban 5 MG TAB PO SCH (10:35)
[2024-01-28 13:21] VITALS: BP 124/63
[2024-02-04] MEDS ORDERED: Amiodarone 200 MG TAB PO SCH (09:00)
[2024-02-18] MEDS ORDERED: Amiodarone 200 MG TAB PO SCH (09:00)
== END 2024-01-28 14:15 | DRG 871 ==
LOC: SUATTDRO 08:28 → ERS 08:28 → 2SE 09:58 → ERS 11:42 → IMCU/EMU 01-16 16:50 → MSONC 01-26 10:42
PROVIDERS: ADMIT Family Medicine; ATTEND Hospitalist
PROC: 3E03329 Introduction of Other Anti-infective into Peripheral Vein, Percutaneous Approach (ICD-10-PCS; 2024-01-15)
PROC: 5A0945A Assistance with Respiratory Ventilation, 24-96 Consecutive Hours, High Flow/Velocity Cannula (ICD-10-PCS; 2024-01-16)
PROC: 30233J1 Transfusion of Nonautologous Serum Albumin into Peripheral Vein, Percutaneous Approach (ICD-10-PCS; 2024-01-20)
PROC: 0DJ08ZZ Inspection of Upper Intestinal Tract, Via Natural or Artificial Opening Endoscopic (ICD-10-PCS; principal; 2024-01-25)
PROC: 3E033XZ Introduction of Vasopressor into Peripheral Vein, Percutaneous Approach (ICD-10-PCS; 2024-01-25)
PROC: 4A033R1 Measurement of Arterial Saturation, Peripheral, Percutaneous Approach (ICD-10-PCS; 2024-01-26)
PROC: 0DH64UZ Insertion of Feeding Device into Stomach, Percutaneous Endoscopic Approach (ICD-10-PCS; 2024-01-26)
PROC: 3E0G76Z Introduction of Nutritional Substance into Upper GI, Via Natural or Artificial Opening (ICD-10-PCS; 2024-01-26)
DX: A41.9 Sepsis, unspecified organism (principal); I21.A1 Myocardial infarction type 2; J18.9 Pneumonia, unspecified organism; J96.21 Acute and chronic respiratory failure with hypoxia; I50.33 Acute on chronic diastolic (congestive) heart failure; J69.0 Pneumonitis due to inhalation of food and vomit; E87.1 Hypo-osmolality and hyponatremia; I48.92 Unspecified atrial flutter; S26.90XA Unspecified injury of heart, unspecified with or without hemopericardium, initial encounter; J91.8 Pleural effusion in other conditions classified elsewhere; I47.10 Supraventricular tachycardia, unspecified; E46 Unspecified protein-calorie malnutrition; Z66 Do not resuscitate; R65.20 Severe sepsis without septic shock; F03.90 Unspecified dementia, unspecified severity, without behavioral disturbance, psychotic disturbance, mood disturbance, and anxiety; H10.10 Acute atopic conjunctivitis, unspecified eye; H04.129 Dry eye syndrome of unspecified lacrimal gland; D50.9 Iron deficiency anemia, unspecified; E55.9 Vitamin D deficiency, unspecified; E78.5 Hyperlipidemia, unspecified; M21.371 Foot drop, right foot; R32 Unspecified urinary incontinence; F32.A Depression, unspecified; I48.0 Paroxysmal atrial fibrillation; R79.89 Other specified abnormal findings of blood chemistry; M79.671 Pain in right foot; R13.12 Dysphagia, oropharyngeal phase; K21.00 Gastro-esophageal reflux disease with esophagitis, without bleeding; Z79.2 Long term (current) use of antibiotics; Z79.899 Other long term (current) drug therapy; I11.0 Hypertensive heart disease with heart failure; E87.6 Hypokalemia
CPT/HCPCS: 36415; 36600; 71045; 71275; 74018; 80048; 80053; 80076; 80202; 82805; 83036; 83605; 83735; 83880; 84100; 84145; 84443; 84484; 85025; 85379; 85610; 85730; 87040; 87081; 87449; 87899; 93005; 93306; 94640; 94760; 96361; 96365; 96367; B4087; J0171; J0282; J0456; J0665; J0692; J0694; J1100; J1650; J1940; J2405; J2543; J2704; J2920; J3370; J3370-JW; J3480; J3490; J7050; J7070; J7611; J7620; P9047; S0028

== ENCOUNTER 2024-02-08 08:05 | Inpatient (IN) | payer MEDICARE ==
[2024-02-08 08:34] LABS: #Basophils 0.05 10x3/uL (0.0-0.2); %Basophils 0.3 % (0.0-1.0); %Eosinophils 2.8 % (0.0-10.0); %Lymphocytes 22.3 % (21.0-51.0); %Monocytes 8.4 % (0.0-10.0); %Neutrophils 65.5 % (42.0-75.0); Hematocrit 34.7 % (42.0-52.0); Hemoglobin 10.9 g/dL (14.0-18.0); Mean Corpuscular HGB CONC 31.4 g/dL (32.0-36.0); Mean Corpuscular Hemoglobin 30.4 pg (27.0-31.0); Mean Corpuscular Volume 96.9 fL (78.0-98.0); Mean Platelet Volume 9.4 fL (7.4-10.4); Platelet Count 452 10x3/uL (130-400); RBC Distribution Width 19.7 % (11.5-14.5); Red Blood Cell (RBC) Count 3.58 mill/uL (4.70-6.10)
[2024-02-08] MEDS ORDERED: Magnesium 2 GM/50 ML BAG (IN WATER) ONE (08:39)
[2024-02-08] MEDS ORDERED: Sodium Chloride 0.9% 100 ML ONE ×3 (08:39→19:26)
[2024-02-08] MEDS ORDERED: Cefepime 2 GM VIAL ONE (08:39)
[2024-02-08 08:47] LABS: INR-International Normal Ratio 1.2; Prothrombin Time 15.5 sec (12.0-14.7)
[2024-02-08 08:48] LABS: PTT 33.4 sec (22.9-36.1)
[2024-02-08 08:56] LABS: Troponin I 0.061 ng/mL (< 0.028)
[2024-02-08] MEDS ORDERED: Ipratropium/Albuterol 3 ML NEB ONE (09:07)
[2024-02-08] MEDS ORDERED: Vancomycin (BATCH) 2 GM/500 ML BAG ONE (09:31)
[2024-02-08] MEDS ORDERED: Acetaminophen 325 MG TAB PO PRN (09:46)
[2024-02-08] MEDS ORDERED: HYDROcodone/Acetaminophen 5/325 mg Tablet PO PRN (09:46)
[2024-02-08 10:12] LABS: Anion Gap 15 mmol/L (10-20); BUN (Urea Nitrogen) 17 mg/dL (8.4-25.7); Calc. Creatinine Clearance 0 mL/min (70-130); Carbon Dioxide 21 mmol/L (23-31); Chloride 115 mmol/L (98-107); Estimated GFR 101; Glucose 91 mg/dL (80-115); Potassium 4.3 mmol/L (3.5-5.1); Sodium 147 mmol/L (136-145)
[2024-02-08] MEDS ORDERED: Furosemide 40 MG (4 mL) VIAL ONE ×2 (10:15→14:25)
[2024-02-08] MEDS ORDERED: methylPREDNISolone Sod Succ 40 MG VIAL ONE ×2 (11:00→19:25)
[2024-02-08] MEDS: methylPREDNISolone Sod Succ 40 MG VIAL IVP SCH ×2 (11:04→19:38)
[2024-02-08 11:46] LABS: Actual Bicarbonate (HCO3a) 22.5 mEq/L (22-28); Base Excess (BEa) -1.7 mEq/L (-2.0 to +3.0); CO2 Tension 36.1 mmHg (35.0-45.0); Calcium, Ionized (arterial) 1.03 mmol/L (1.12-1.30); Carboxyhemoglobin (COHb) 0.5 gm% (0.0-3.0); Hematocrit-ABG 30 % (42.0-52.0); Hemoglobin (Hb) 10.3 g/dL (14.0-18.0); O2 Tension (PaO2), arterial 155.8 mmHg (> 80.0); Potassium - ABG Lab 3.94 mmol/L (3.70-5.30); pH, Arterial 7.413 (7.35-7.45)
[2024-02-08 11:48] LABS: Puncture Site RRA
[2024-02-08 11:49] LABS: ALV-art Gradient 155.575 mmHg (0-20)
[2024-02-08] MEDS ORDERED: Ipratropium/Albuterol 3 ML NEB NEB PRN (12:30)
[2024-02-08] MEDS: Furosemide 40 MG (4 mL) VIAL SLOW IVP SCH (14:28)
[2024-02-08] MEDS: Piperacillin/Tazobactam 3.375 GM in Sodium Chloride 0.9% 100 ML IVPB SCH ×3 (16:13→19:38)
[2024-02-08] MEDS ORDERED: Piperacillin/Tazobactam 3.375 GM VIAL ONE ×2 (16:21→19:26)
[2024-02-08] MEDS: Ipratropium/Albuterol 3 ML NEB NEB SCH (18:19)
[2024-02-08] MEDS ORDERED: Enoxaparin 40 MG (0.4 mL) SYRINGE ONE (19:26)
[2024-02-08] MEDS ORDERED: Pantoprazole 40 MG VIAL ONE (19:26)
[2024-02-08] MEDS: Enoxaparin 40 MG (0.4 mL) SYRINGE SC SCH (19:38)
[2024-02-08] MEDS ORDERED: HYDROcodone/Acetaminophen 5/325 mg Tablet PER TUBE PRN (19:39)
[2024-02-08] MEDS: Pantoprazole 40 MG VIAL IVP SCH (19:39)
[2024-02-08] MEDS ORDERED: Famotidine/PF 20 mg/2ml Vial SLOW IVP SCH (21:00)
[2024-02-08] MEDS ORDERED: Vancomycin 1 GM in Premix 1 BAG IVPB SCH (21:00)
[2024-02-08] MEDS ORDERED: guaiFENesin ER 600 MG TAB PO SCH (21:00)
[2024-02-08] MEDS: Vancomycin (BATCH) 1.25 GM in Premix 1 BAG IVPB SCH (21:49)
[2024-02-08] MEDS ORDERED: Glucagon 1 MG/ML KIT IM PRN (23:01)
[2024-02-08] MEDS ORDERED: Dextrose 5% in Water 1,000 ML IV PRN (23:01)
[2024-02-08] MEDS ORDERED: Dextrose 50% Abboject 50 ML SYRINGE SLOW IVP PRN (23:01)
[2024-02-09 04:20] LABS: #Basophils Less than 0.03 10x3/uL (0.0-0.2); #Eosinphils Less than 0.03 10x3/uL (0.0-0.7); %Basophils 0.1 % (0.0-1.0); %Lymphocytes 7.8 % (21.0-51.0); %Monocytes 4.7 % (0.0-10.0); %Neutrophils 86.4 % (42.0-75.0); Hemoglobin 9.1 g/dL (14.0-18.0); Mean Corpuscular HGB CONC 31.4 g/dL (32.0-36.0); Mean Corpuscular Hemoglobin 30.4 pg (27.0-31.0); Mean Platelet Volume 9.5 fL (7.4-10.4); Platelet Count 395 10x3/uL (130-400); RBC Distribution Width 18.6 % (11.5-14.5); Red Blood Cell (RBC) Count 2.99 mill/uL (4.70-6.10)
[2024-02-09 04:36] LABS: Vancomycin, Random 25.1 ug/mL (See Comment)
[2024-02-09 04:38] LABS: Anion Gap 12 mmol/L (10-20); BUN (Urea Nitrogen) 22 mg/dL (8.4-25.7); Calc. Creatinine Clearance 107 mL/min (70-130); Calcium 7.8 mg/dL (7.8-10.44); Carbon Dioxide 24 mmol/L (23-31); Chloride 117 mmol/L (98-107); Estimated GFR 101; Glucose 141 mg/dL (80-115); Sodium 149 mmol/L (136-145)
[2024-02-09] MEDS: Metoprolol Tartrate 25 MG TAB PER TUBE SCH ×3 (05:43→22:28)
[2024-02-09] MEDS ORDERED: Docusate 100 MG CAP PER TUBE PRN (09:27)
[2024-02-09 09:54] VITALS: BMI 21.3
[2024-02-09] MEDS: GUAIFENESIN SF SOLN 200 MG/10 ML UDCUP PER TUBE SCH (10:18)
[2024-02-09] MEDS: Piperacillin/Tazobactam 3.375 GM in Sodium Chloride 0.9% 100 ML IVPB SCH (10:19)
[2024-02-09] MEDS ORDERED: Ipratropium/Albuterol 3 ML NEB NEB PRN (10:45)
[2024-02-09] MEDS: Saccharomyces boulardii 250 MG CAP PER TUBE SCH (14:08)
[2024-02-09] MEDS: Apixaban 2.5 MG TAB PER TUBE SCH ×2 (14:09→22:27)
[2024-02-09] MEDS: Aspirin Chewable 81 MG TAB PER TUBE SCH (14:09)
[2024-02-09] MEDS ORDERED: Non-Formulary Item 1 EACH (Ferrous Sulfate [Ferosul] 325 MG Tablet) PER TUBE SCH (21:00)
[2024-02-09] MEDS ORDERED: Apixaban 5 MG TAB PER TUBE SCH ×2 (21:00)
[2024-02-09] MEDS: Atorvastatin Calcium 40 MG TAB PER TUBE SCH (22:27)
[2024-02-09] MEDS: Ferrous Sulfate 300 MG (5 mL) UDCUP PER TUBE SCH (22:35)
[2024-02-10] MEDS: Acetaminophen 650 MG/20.3 ML UDCUP PER TUBE PRN (02:58)
[2024-02-10 07:59] LABS: #Basophils Less than 0.03 10x3/uL (0.0-0.2); #Eosinphils Less than 0.03 10x3/uL (0.0-0.7); %Basophils 0.1 % (0.0-1.0); %Eosinophils 0.1 % (0.0-10.0); %Lymphocytes 15.3 % (21.0-51.0); %Monocytes 6.8 % (0.0-10.0); %Neutrophils 77.1 % (42.0-75.0); Hematocrit 36.1 % (42.0-52.0); Hemoglobin 10.7 g/dL (14.0-18.0); Mean Corpuscular HGB CONC 29.6 g/dL (32.0-36.0); Mean Corpuscular Hemoglobin 29.7 pg (27.0-31.0); Mean Corpuscular Volume 100.3 fL (78.0-98.0); Mean Platelet Volume 9.1 fL (7.4-10.4); Platelet Count 509 10x3/uL (130-400); RBC Distribution Width 18.6 % (11.5-14.5)
[2024-02-10 08:15] LABS: Anion Gap 12 mmol/L (10-20); BUN (Urea Nitrogen) 31 mg/dL (8.4-25.7); Calc. Creatinine Clearance 92 mL/min (70-130); Calcium 8.3 mg/dL (7.8-10.44); Carbon Dioxide 27 mmol/L (23-31); Chloride 113 mmol/L (98-107); Estimated GFR 98; Glucose 77 mg/dL (80-115); Sodium 148 mmol/L (136-145)
[2024-02-10] MEDS ORDERED: Non-Formulary Item 1 EACH (Multivitamin [Multi-Vitamin Daily] 1 TABLET Tablet) PER TUBE SCH (09:00)
[2024-02-10] MEDS ORDERED: Cholecalciferol 1,000 UNITS (25 MCG) TAB PER TUBE SCH (09:00)
[2024-02-10] MEDS: Cholecalciferol 1,000 UNITS (25 MCG) TAB PER TUBE SCH (09:56)
[2024-02-10] MEDS: Lisinopril 20 MG TAB PER TUBE SCH (09:56)
[2024-02-10] MEDS: Saccharomyces boulardii 250 MG CAP PER TUBE SCH (09:56)
[2024-02-10] MEDS: methylPREDNISolone Sod Succ 40 MG VIAL IVP SCH (09:57)
[2024-02-10] MEDS: Aspirin Chewable 81 MG TAB PER TUBE SCH (09:57)
[2024-02-10] MEDS: Multivits W-Minerals Liquid 15 ML LIQ PER TUBE SCH (19:04)
[2024-02-11 05:43] LABS: Anion Gap 15 mmol/L (10-20); BUN (Urea Nitrogen) 24 mg/dL (8.4-25.7); Calc. Creatinine Clearance 104 mL/min (70-130); Calcium 8.3 mg/dL (7.8-10.44); Carbon Dioxide 23 mmol/L (23-31); Chloride 117 mmol/L (98-107); Estimated GFR 102; Glucose 70 mg/dL (80-115); Potassium 4.3 mmol/L (3.5-5.1)
[2024-02-11 05:46] LABS: #Basophils Less than 0.03 10x3/uL (0.0-0.2); %Basophils 0.1 % (0.0-1.0); %Eosinophils 1.2 % (0.0-10.0); %Lymphocytes 15.9 % (21.0-51.0); %Monocytes 8.5 % (0.0-10.0); %Neutrophils 73.6 % (42.0-75.0); Hematocrit 35.7 % (42.0-52.0); Hemoglobin 10.3 g/dL (14.0-18.0); Mean Corpuscular HGB CONC 28.9 g/dL (32.0-36.0); Mean Corpuscular Hemoglobin 29.1 pg (27.0-31.0); Mean Corpuscular Volume 100.8 fL (78.0-98.0); Platelet Count 529 10x3/uL (130-400); RBC Distribution Width 18.3 % (11.5-14.5); Red Blood Cell (RBC) Count 3.54 mill/uL (4.70-6.10)
[2024-02-11 05:47] LABS: Sodium 151 mmol/L (136-145)
[2024-02-11 06:36] LABS: Anisocytosis SLIGHT = 6-15 cells HPF (0-5); Hypochromia SLIGHT = 6-15 cells HPF (0-5); Macrocytosis SLIGHT = 6-15 cells HPF (0-5); Ovalocytes SLIGHT = 2-5 cells HPF (0-1); Platelet Adequacy Comment Platelets Increased; Polychromasia MODERATE = 3-4 cells HPF (0-2)
[2024-02-11] MEDS: Dextrose 5% in Water 1,000 ML IV SCH (07:49)
[2024-02-11 17:03] LABS: Hematocrit 34.8 % (42.0-52.0); Hemoglobin 10.5 g/dL (14.0-18.0); Platelet Count 483 10x3/uL (130-400)
[2024-02-11 21:49] LABS: Hematocrit 31.3 % (42.0-52.0); Hemoglobin 9.5 g/dL (14.0-18.0); Platelet Count 485 10x3/uL (130-400)
[2024-02-12 02:11] LABS: Hematocrit 30.6 % (42.0-52.0); Hemoglobin 9.7 g/dL (14.0-18.0); Platelet Count 457 10x3/uL (130-400)
[2024-02-12 02:34] LABS: Chloride 112 mmol/L (98-107); Potassium 3.5 mmol/L (3.5-5.1); Sodium 145 mmol/L (136-145)
[2024-02-12 02:35] LABS: Calcium 7.5 mg/dL (7.8-10.44); Glucose 87 mg/dL (80-115)
[2024-02-12 02:37] LABS: Anion Gap 15 mmol/L (10-20); Carbon Dioxide 22 mmol/L (23-31)
[2024-02-12 02:39] LABS: Calc. Creatinine Clearance 108 mL/min (70-130); Estimated GFR 103
[2024-02-12 02:40] LABS: BUN (Urea Nitrogen) 25 mg/dL (8.4-25.7)
[2024-02-12 09:39] VITALS: BP 100/52
[2024-02-12 12:30] VITALS: TEMP 98.4
[2024-02-18] MEDS ORDERED: Amiodarone 200 MG TAB PER TUBE SCH (09:00)
== END 2024-02-12 15:49 | DRG 871 ==
LOC: ERS 08:05 → ERHOLD 09:45 → IMCU/EMU 20:20
PROVIDERS: ADMIT Family Medicine; ATTEND Internal Medicine
PROC: 5A09357 Assistance with Respiratory Ventilation, Less than 24 Consecutive Hours, Continuous Positive Airway Pressure (ICD-10-PCS; principal; 2024-02-08)
DX: A41.9 Sepsis, unspecified organism (principal); J69.0 Pneumonitis due to inhalation of food and vomit; J96.01 Acute respiratory failure with hypoxia; E87.0 Hyperosmolality and hypernatremia; L89.159 Pressure ulcer of sacral region, unspecified stage; Z66 Do not resuscitate; I10 Essential (primary) hypertension; E78.5 Hyperlipidemia, unspecified; I48.91 Unspecified atrial fibrillation; F03.90 Unspecified dementia, unspecified severity, without behavioral disturbance, psychotic disturbance, mood disturbance, and anxiety; Z86.73 Personal history of transient ischemic attack (TIA), and cerebral infarction without residual deficits; Z79.01 Long term (current) use of anticoagulants; Z86.16 Personal history of COVID-19; Z79.82 Long term (current) use of aspirin; Z79.899 Other long term (current) drug therapy
CPT/HCPCS: 36415; 36416; 36430; 36600; 71045; 74177; 80048; 80053; 80202; 82274; 82550; 82805; 83605; 83880; 84145; 84484; 85014; 85018; 85025; 85049; 85610; 85730; 86140; 86850; 86900; 86901; 87040; 87081; 93005; 94640; 94660; 96365; 96368; 96374; 96375; 97139; C9113; J0171; J0692; J1650; J1940; J2001; J2543; J2704; J2920; J3370; J3475; J3490; J7030; J7050; J7070; J7120; J7620; P9016; Q9967